=== PATIENT | male | born 1960 | race Caucasian/White ===

== ENCOUNTER 2020-10-02 05:43 | Inpatient (IN) | payer OTHER ==
[2020-10-02] MEDS ORDERED: TRANEXAMIC ACID 1000 MG/10 ML VIAL IVPUSH ONE (06:44)
[2020-10-02] MEDS ORDERED: CELECOXIB 200 MG CAPSULE PO ONE (06:44)
[2020-10-02] MEDS ORDERED: CEFAZOLIN 2 GM in DEXTROSE 5%-WATER - 50 ML IVPB ONE (06:44)
[2020-10-02] MEDS ORDERED: BUPIVACAINE LIPOSOME/PF (EXPAREL) 266 MG/20 ML VIAL ONE (07:07)
[2020-10-02] MEDS ORDERED: MIDAZOLAM HCL 2 MG/2 ML SINGLE DOSE VIAL ONE ×3 (07:07→07:49)
[2020-10-02] MEDS ORDERED: CELECOXIB 200 MG CAPSULE ONE (07:08)
[2020-10-02] MEDS ORDERED: SODIUM CHLORIDE 0.9% P/F 10 ML VIAL IJ ONE (07:08)
[2020-10-02] MEDS ORDERED: ceFAZolin SODIUM 1 GM VIAL ONE ×3 (07:37→09:05)
[2020-10-02] MEDS ORDERED: VANCOMYCIN 1,000 MG VIAL (RESTRICTED TO ID ONLY) ONE (07:38)
[2020-10-02] MEDS ORDERED: OXYMETAZOLINE 0.05% NASAL SOLUTION 15 ML BOTTLE NS ONE (07:38)
[2020-10-02] MEDS ORDERED: PROPOFOL 20 ML ONE ×5 (07:48→10:32)
[2020-10-02] MEDS ORDERED: MAGNESIUM HYDROX 2400MG/30ML ORAL SUSPENSION 30 ML CUP PO PRN (07:58)
[2020-10-02] MEDS ORDERED: MAG HYDROX/AL HYDROX/SIMETH 30 ML UNIT-DOSE CUP PO PRN (07:58)
[2020-10-02] MEDS ORDERED: ONDANSETRON 4 MG/2 ML VIAL IVPUSH PRN (07:58)
[2020-10-02] MEDS ORDERED: LACTATED RINGERS SOLUTION 1,000 ML IV SCH (08:00)
[2020-10-02] MEDS ORDERED: DEXAMETHASONE SOD PHOSPHATE 4 MG/1 ML VIAL ONE (09:05)
[2020-10-02] MEDS ORDERED: ONDANSETRON 4 MG/2 ML VIAL ONE (09:05)
[2020-10-02] MEDS ORDERED: TRANEXAMIC ACID 1000 MG/10 ML VIAL ONE (09:05)
[2020-10-02] MEDS ORDERED: KETOROLAC TROMETHAMINE 30 MG/1 ML VIAL ONE (09:05)
[2020-10-02] MEDS ORDERED: VANCOMYCIN 1,000 MG VIAL (RESTRICTED TO ID ONLY) IVPB ONE ×2 (09:59→10:36)
[2020-10-02] MEDS ORDERED: ACETAMINOPHEN 325 MG TABLET (FP) ONE (12:04)
[2020-10-02] MEDS ORDERED: oxyCODONE HCL 5 MG TABLET PO PRN ×2 (12:07)
[2020-10-02] MEDS ORDERED: KETOROLAC TROMETHAMINE 30 MG/1 ML VIAL IVPUSH PRN (12:09)
[2020-10-02] MEDS: MULTIVITAMINS (DAILY MVI) TABLET (FP) PO SCH (14:25)
[2020-10-02] MEDS: PANTOPRAZOLE 40 MG TABLET PO SCH (14:25)
[2020-10-02] MEDS: SENNOSIDES/DOCUSATE COMBO (SENNA PLUS) TABLET (UD) PO SCH ×3 (14:25→21:49)
[2020-10-02] MEDS ORDERED: [UNRECOGNIZED DRUG - OTHER] PO PRN (14:38)
[2020-10-02] MEDS: CEFAZOLIN 2 GM/D5W 2 GM/50 ML ML IVPB SCH ×2 (17:12→23:39)
[2020-10-02] MEDS: ACETAMINOPHEN 325 MG TABLET (FP) PO SCH ×2 (17:12→23:39)
[2020-10-02] MEDS: [UNRECOGNIZED DRUG - OTHER] PO PRN ×2 (17:13→21:46)
[2020-10-03] MEDS: [UNRECOGNIZED DRUG - OTHER] PO PRN ×3 (05:20→16:46)
[2020-10-03] MEDS: ACETAMINOPHEN 325 MG TABLET (FP) PO SCH ×4 (06:31→23:21)
[2020-10-03] MEDS: ASPIRIN 325 MG TABLET PO SCH (08:42)
[2020-10-03 09:10] LABS: HEMATOCRIT 35.6 % (35.4-49); HEMOGLOBIN 12.1 GM/dL (11.7-16.9); MCH 29.9 pg (25.7-33.7); MCHC 34.1 g/dl (32.0-35.9); MEAN CELL VOLUME 87.9 fl (80-96); PLATELET COUNT 162 K/MM3 (134-434); RBC 4.05 M/mm3 (4.00-5.60); RDW 13.2 % (11.9-15.9); WHITE BLOOD COUNT 11.5 K/mm3 (4.0-10.0)
[2020-10-03] MEDS ORDERED: PT OWN MED DRAWER 7, Y5N ONE (10:32)
[2020-10-03] MEDS: SENNOSIDES/DOCUSATE COMBO (SENNA PLUS) TABLET (UD) PO SCH ×2 (10:50→22:03)
[2020-10-03] MEDS: MULTIVITAMINS (DAILY MVI) TABLET (FP) PO SCH (10:50)
[2020-10-03] MEDS: PANTOPRAZOLE 40 MG TABLET PO SCH (10:50)
[2020-10-04] MEDS: ACETAMINOPHEN 325 MG TABLET (FP) PO SCH ×4 (06:36→23:36)
[2020-10-04 07:21] LABS: HEMATOCRIT 36.7 % (35.4-49); HEMOGLOBIN 12.1 GM/dl (11.7-16.9); MCH 29.2 pg (25.7-33.7); MEAN CELL VOLUME 88.6 fl (80-96); MEAN PLT VOLUME 9.8 fl (7.5-11.1); PLATELET COUNT 184 K/MM3 (134-434); RBC 4.14 M/mm3 (4.00-5.60); RDW 12.8 % (11.9-15.9); WHITE BLOOD COUNT 14.1 K/mm3 (4.0-10.8)
[2020-10-04 07:52] LABS: CALCIUM 8.5 mg/dl (8.5-10)
[2020-10-04] MEDS: ASPIRIN 325 MG TABLET PO SCH (08:42)
[2020-10-04] MEDS: [UNRECOGNIZED DRUG - OTHER] PO PRN (08:43)
[2020-10-04] MEDS: PANTOPRAZOLE 40 MG TABLET PO SCH (09:40)
[2020-10-04] MEDS: SENNOSIDES/DOCUSATE COMBO (SENNA PLUS) TABLET (UD) PO SCH ×2 (09:40→22:00)
[2020-10-04] MEDS: MULTIVITAMINS (DAILY MVI) TABLET (FP) PO SCH (09:40)
[2020-10-04] MEDS: [UNRECOGNIZED DRUG - OTHER] PO PRN (12:23)
[2020-10-04] MEDS: metFORMIN HCL 500 MG TABLET (FP) PO SCH (16:36)
[2020-10-04] MEDS: [UNRECOGNIZED DRUG - OTHER] PO PRN ×2 (18:34→23:42)
[2020-10-05] MEDS: [UNRECOGNIZED DRUG - OTHER] PO PRN ×2 (06:09→18:40)
[2020-10-05] MEDS: ACETAMINOPHEN 325 MG TABLET (FP) PO SCH ×2 (06:09→12:38)
[2020-10-05] MEDS: metFORMIN HCL 500 MG TABLET (FP) PO SCH ×2 (07:25→17:03)
[2020-10-05 08:06] LABS: BASO % 0.5 % (0-2.0); EOS % 0.9 % (0-4.5); HEMATOCRIT 33.4 % (35.4-49); HEMOGLOBIN 11.5 GM/dl (11.7-16.9); LYMPH % 9.9 % (8-40); MCH 30.5 pg (25.7-33.7); MCHC 34.5 g/dl (32.0-35.9); MEAN CELL VOLUME 88.6 fl (80-96); MEAN PLT VOLUME 9.9 fl (7.5-11.1); MONO % 9.5 % (3.8-10.2); NEUT % 79.2 % (42.8-82.8); PLATELET COUNT 193 K/MM3 (134-434); RBC 3.77 M/mm3 (4.00-5.60); RDW 12.6 % (11.9-15.9); WHITE BLOOD COUNT 12.4 K/mm3 (4.0-10.8)
[2020-10-05 08:10] LABS: BILIRUBIN,TOTAL 1.2 mg/dl (0.2-1); CALCIUM 8.4 mg/dl (8.5-10); CREATININE 0.9 mg/dl (0.55-1.3)
[2020-10-05] MEDS: SENNOSIDES/DOCUSATE COMBO (SENNA PLUS) TABLET (UD) PO SCH ×2 (09:26→22:03)
[2020-10-05] MEDS: MULTIVITAMINS (DAILY MVI) TABLET (FP) PO SCH (09:27)
[2020-10-05] MEDS: ASPIRIN 325 MG TABLET PO SCH (09:27)
[2020-10-05] MEDS: PANTOPRAZOLE 40 MG TABLET PO SCH (09:27)
[2020-10-05] MEDS: ACETAMINOPHEN 325 MG TABLET (FP) PO PRN (18:40)
[2020-10-06] MEDS: ACETAMINOPHEN 325 MG TABLET (FP) PO PRN ×3 (01:01→22:19)
[2020-10-06] MEDS: metFORMIN HCL 500 MG TABLET (FP) PO SCH ×2 (06:44→16:43)
[2020-10-06 08:06] LABS: BASO % 0.6 % (0-2.0); EOS % 1.9 % (0-4.5); HEMATOCRIT 31.8 % (35.4-49); HEMOGLOBIN 10.6 GM/dl (11.7-16.9); LYMPH % 12.4 % (8-40); MCH 29.3 pg (25.7-33.7); MCHC 33.4 g/dl (32.0-35.9); MEAN CELL VOLUME 87.6 fl (80-96); MEAN PLT VOLUME 8.9 fl (7.5-11.1); MONO % 10.9 % (3.8-10.2); NEUT % 74.2 % (42.8-82.8); PLATELET COUNT 231 K/MM3 (134-434); RBC 3.63 M/mm3 (4.00-5.60); RDW 12.5 % (11.9-15.9); WHITE BLOOD COUNT 9.3 K/mm3 (4.0-10.8)
[2020-10-06] MEDS: ASPIRIN 325 MG TABLET PO SCH (08:16)
[2020-10-06 08:24] LABS: BILIRUBIN,TOTAL 1.2 mg/dl (0.2-1); CALCIUM 8.8 mg/dl (8.5-10); CREATININE 0.9 mg/dl (0.55-1.3); TOT PROT 6.2 g/dl (6.4-8.2)
[2020-10-06] MEDS: SENNOSIDES/DOCUSATE COMBO (SENNA PLUS) TABLET (UD) PO SCH ×2 (10:18→21:24)
[2020-10-06] MEDS: PANTOPRAZOLE 40 MG TABLET PO SCH (10:18)
[2020-10-06] MEDS: MULTIVITAMINS (DAILY MVI) TABLET (FP) PO SCH (10:20)
[2020-10-06] MEDS: [UNRECOGNIZED DRUG - OTHER] PO PRN (22:20)
[2020-10-07] MEDS: ACETAMINOPHEN 325 MG TABLET (FP) PO PRN ×2 (06:49→18:39)
[2020-10-07] MEDS: metFORMIN HCL 500 MG TABLET (FP) PO SCH ×2 (06:49→16:50)
[2020-10-07] MEDS: ASPIRIN 325 MG TABLET PO SCH (08:58)
[2020-10-07] MEDS: PANTOPRAZOLE 40 MG TABLET PO SCH (09:45)
[2020-10-07] MEDS: SENNOSIDES/DOCUSATE COMBO (SENNA PLUS) TABLET (UD) PO SCH ×2 (09:45→21:32)
[2020-10-07] MEDS: MULTIVITAMINS (DAILY MVI) TABLET (FP) PO SCH (09:45)
[2020-10-07] MEDS ORDERED: MELATONIN 5 MG TABLETS PO PRN (10:00)
[2020-10-07] MEDS: [UNRECOGNIZED DRUG - OTHER] PO PRN (20:13)
[2020-10-07] MEDS: [UNRECOGNIZED DRUG - OTHER] PO PRN (20:15)
[2020-10-08] MEDS: metFORMIN HCL 500 MG TABLET (FP) PO SCH (06:39)
[2020-10-08] MEDS: SENNOSIDES/DOCUSATE COMBO (SENNA PLUS) TABLET (UD) PO SCH (09:02)
[2020-10-08] MEDS: PANTOPRAZOLE 40 MG TABLET PO SCH (09:03)
[2020-10-08] MEDS: ASPIRIN 325 MG TABLET PO SCH (09:03)
[2020-10-08] MEDS: MULTIVITAMINS (DAILY MVI) TABLET (FP) PO SCH (09:03)
[2020-10-08 09:40] LABS: BASO % 0.6 % (0-2.0); HEMATOCRIT 29.8 % (35.4-49); HEMOGLOBIN 10.2 GM/dl (11.7-16.9); LYMPH % 13.7 % (8-40); MCH 29.9 pg (25.7-33.7); MCHC 34.2 g/dl (32.0-35.9); MEAN CELL VOLUME 87.3 fl (80-96); MEAN PLT VOLUME 8.6 fl (7.5-11.1); MONO % 12.7 % (3.8-10.2); PLATELET COUNT 312 K/MM3 (134-434); RBC 3.42 M/mm3 (4.00-5.60); RDW 12.2 % (11.9-15.9)
[2020-10-08 09:49] LABS: ALBUMIN 2.9 g/dl (3.4-5.0); BILIRUBIN,TOTAL 1.2 mg/dl (0.2-1); CALCIUM 8.7 mg/dl (8.5-10); CREATININE 0.8 mg/dl (0.55-1.3); POTASSIUM 4.3 mmol/L (3.5-5.1); TOT PROT 6.1 g/dl (6.4-8.2)
[2020-10-08 14:09] LABS: CALCIUM 8.8 mg/dl (8.5-10); POTASSIUM 3.9 mmol/L (3.5-5.1)
[2020-10-08 14:21] VITALS: BP 146/77; PULSE 83; TEMP 99.5
[2020-10-09] MEDS ORDERED: sitaGLIPtin PHOSPHATE 50 MG TABLET PO SCH (07:00)
== END 2020-10-08 17:25 | disposition home health service (06) | DRG 302 ==
LOC: FM/S 05:43
PROVIDERS: ADMIT Orthopaedic Surgery; ATTEND Orthopaedic Surgery
PROC: 8E0Y0CZ Robotic Assisted Procedure of Lower Extremity, Open Approach (ICD-10-PCS; 2020-10-02)
PROC: 0SRC0J9 Replacement of Right Knee Joint with Synthetic Substitute, Cemented, Open Approach (ICD-10-PCS; principal; 2020-10-02 08:43)
DX: M17.11 Unilateral primary osteoarthritis, right knee (principal); R73.9 Hyperglycemia, unspecified; R50.82 Postprocedural fever
CPT/HCPCS: 36415; 71045-TC-FY; 73560-TC-RT-FY; 80048; 80053; 80061; 81003; 81015; 82962; 83036; 83930; 83935; 84300; 85025; 85027; 87040; 87086; 88304-TC; 88311-TC; 94760; 97010-GP; 97116-GP; 97162-GP; C9803; U0003